=== PATIENT | male | born 1955 | race Two or more races ===

== ENCOUNTER 2017-11-13 13:12 | Inpatient (IN) | payer MEDICAID ==
[~2017-11-13] VITALS: Ht 170.2 cm; Wt 96.3 kg
[~2017-11-13 13:12] MED LIST: ASPI81CH43 PO; ATOR20TA PO; CAR3125T PO; ENA2.5T PO; GABA300C10; INSUINJ49; MUPI2OIN10; PRAS10TA6
[2017-11-13] MEDS ORDERED: cloNIDine HCL 0.1 MG TAB PO ONE (13:30)
[2017-11-13 13:55] LABS: Basophils # (auto) 0 uL; Basophils % (auto) 0.5 % (0.0-2.0); Eosinophils # (auto) 0.5 uL; Eosinophils % (auto) 5.4 % (0.0-7.0); Hematocrit 44.3 % (41.0-53.0); Hemoglobin 15.3 g/dL (13.5-17.5); Mean Corpuscular Hemoglobin 31.9 pg (28.0-32.0); Mean Corpuscular Hgb Conc. 34.6 g/dL (32.0-36.0); Mean Corpuscular Volume 92.3 fL (80.0-100.0); Monocytes # (auto) 0.7 uL; Monocytes % (auto) 7.9 % (0.0-12.0); Neutrophils # (auto) 4.8 uL; Neutrophils % (auto) 53.2 % (37.0-80.0); Nucleated Red Blood Cells % 0.2 %; Platelet Count (auto) 268 10^3/uL (140-450); Red Cell Distribution Width 13.4 % (11.8-14.3)
[2017-11-13 14:13] LABS: Albumin 3.6 g/dL (3.4-5.0); BUN/Creatinine Ratio 15.6; Calcium 8.8 mg/dL (8.5-10.1); Potassium 3.8 mmol/L (3.5-5.1)
[2017-11-13 14:21] LABS: Bilirubin, Total 1.2 mg/dL (0.2-1.0); Total Protein 7.2 g/dL (6.4-8.2)
[2017-11-13] MEDS ORDERED: NITROGLYCERIN 0.4 MG SL TAB SL ONE (14:45)
[2017-11-13] MEDS ORDERED: ASPirin 81 mg TAB PO ONE (14:45)
[2017-11-13] MEDS ORDERED: ONDANSETRON HCL 4 MG/2 ML VIAL IV PRN (15:15)
[2017-11-13] MEDS ORDERED: ENALAPRILAT 1.25 MG/ML-1ML VIAL IV PRN (15:15)
[2017-11-13] MEDS ORDERED: MORPHINE SULFATE 8mg/ml INJ SDV IV PRN ×2 (15:15)
[2017-11-13] MEDS ORDERED: ALUM & MAG HYDROX-SIMETH LIQ(MAALOX) 30 ML PO ONE (15:15)
[2017-11-13] MEDS ORDERED: DEXTROSE (50%) 50ML SYRG IV PRN (15:15)
[2017-11-13] MEDS ORDERED: NITROGLYCERIN 0.4 MG SL TAB SL PRN ×2 (15:15)
[2017-11-13] MEDS ORDERED: cloNIDine HCL 0.1 MG TAB PO PRN (15:15)
[2017-11-13] MEDS ORDERED: ACETAMINOPHEN 325 MG TAB PO PRN (15:15)
[2017-11-13] MEDS: DOCUSATE SOD 100 MG CAP PO SCH (15:25)
[2017-11-13] MEDS: ENOXAPARIN SOD 100 MG/1 ML SYRINGE SC SCH (15:44)
[2017-11-13] MEDS: ACCU-CHEK COMFORT CURVE STRIP VI SCH ×2 (17:00→22:00)
[2017-11-13] MEDS: InsuLIN REG 1unit/0.01ml Soln (100units/ml) SC SCH ×2 (17:00→22:00)
[2017-11-13] MEDS: INSULIN 70/30 1unit/0.01ml Susp (100units/ml) SC SCH (18:00)
[2017-11-13 18:20] VITALS: BP 123/81
[2017-11-13] MEDS: ALBUTEROL SULF 2.5 MG/0.5ML(0.5%) NEB SOLN NEB SCH (18:45)
[2017-11-13] MEDS: IPRATROPIUM BROM 0.5 MG/2.5ML INH SOL NEB SCH (18:45)
[2017-11-13] MEDS: BUDESONIDE (INHALATION) 0.5 MG/2 ML NEB NEB SCH (18:45)
[2017-11-13] MEDS: ZOLPIDEM TARTRATE 5 MG TAB PO PRN ×2 (21:50→22:50)
[2017-11-13] MEDS: SODIUM CHLOR 0.9% PF (SALINE LOCK) 10ML VIAL/SYR IV SCH (22:00)
[2017-11-13] MEDS: ATORVASTATIN 20 MG TAB PO SCH (22:00)
[2017-11-13] MEDS: CARVEDILOL 12.5 MG TAB PO SCH (22:00)
[2017-11-13] MEDS: ENALAPRIL MALEATE 2.5 MG TAB PO SCH (22:00)
[2017-11-13] MEDS: GABAPENTIN 300 MG CAP PO SCH (22:00)
[2017-11-14] VITALS (8 sets, daily range): BP systolic 121–171; BP diastolic 68–103
[2017-11-14] MEDS: LORazepam 0.5 MG TAB PO PRN ×3 (01:28→22:26)
[2017-11-14] MEDS: InsuLIN REG 1unit/0.01ml Soln (100units/ml) SC SCH ×3 (05:59→21:49)
[2017-11-14] MEDS: ACCU-CHEK COMFORT CURVE STRIP VI SCH ×4 (06:00→21:45)
[2017-11-14] MEDS: SODIUM CHLOR 0.9% PF (SALINE LOCK) 10ML VIAL/SYR IV SCH ×3 (06:00→21:45)
[2017-11-14] MEDS: ENOXAPARIN SOD 100 MG/1 ML SYRINGE SC SCH (06:11)
[2017-11-14] MEDS: GABAPENTIN 300 MG CAP PO SCH ×3 (06:11→21:43)
[2017-11-14 06:54] LABS: Basophils # (auto) 0.1 uL; Basophils % (auto) 0.7 % (0.0-2.0); Eosinophils # (auto) 0.6 uL; Eosinophils % (auto) 6.3 % (0.0-7.0); Hematocrit 43.4 % (41.0-53.0); Hemoglobin 15.2 g/dL (13.5-17.5); Lymphocytes # (auto) 3.9 uL; Lymphocytes % (auto) 40.3 % (10.0-50.0); Mean Corpuscular Hemoglobin 32.3 pg (28.0-32.0); Mean Corpuscular Volume 92.4 fL (80.0-100.0); Monocytes # (auto) 0.9 uL; Monocytes % (auto) 9.9 % (0.0-12.0); Neutrophils # (auto) 4.1 uL; Neutrophils % (auto) 42.8 % (37.0-80.0); Nucleated Red Blood Cells % 0.1 %; Platelet Count (auto) 271 10^3/uL (140-450); Red Cell Distribution Width 13.4 % (11.8-14.3); White Blood Cell 9.6 10^3/uL (4.4-10.8)
[2017-11-14] MEDS: ALBUTEROL SULF 2.5 MG/0.5ML(0.5%) NEB SOLN NEB SCH ×3 (07:04→18:00)
[2017-11-14] MEDS: BUDESONIDE (INHALATION) 0.5 MG/2 ML NEB NEB SCH ×2 (07:04→22:00)
[2017-11-14] MEDS: IPRATROPIUM BROM 0.5 MG/2.5ML INH SOL NEB SCH ×4 (07:04→18:00)
[2017-11-14 07:07] LABS: Potassium 4.2 mmol/L (3.5-5.1)
[2017-11-14 07:19] LABS: Albumin 3.6 g/dL (3.4-5.0); BUN/Creatinine Ratio 16.3; Magnesium 2.1 mg/dL (1.6-2.6)
[2017-11-14 07:23] LABS: Urine Bacteria NONE SEEN /hpf (None Seen); Urine Blood Negative /uL (Negative); Urine Specific Gravity 1.018 (1.001-1.035); Urine WBC 1 /hpf (0 - 3)
[2017-11-14 07:24] LABS: Bilirubin, Total 1.1 mg/dL (0.2-1.0); Total Protein 6.9 g/dL (6.4-8.2)
[2017-11-14] MEDS: DOCUSATE SOD 100 MG CAP PO SCH (09:44)
[2017-11-14] MEDS: PRASUGREL HCL 10 MG TAB PO SCH (09:44)
[2017-11-14 09:45] LABS: INR 0.96 (0.9-1.15); Prothrombin Time 10.5 sec (9.37-12.3)
[2017-11-14] MEDS: CARVEDILOL 12.5 MG TAB PO SCH ×2 (09:45→21:43)
[2017-11-14] MEDS: LOSARTAN POTASSIUM 50 MG TAB PO SCH (09:46)
[2017-11-14] MEDS: ASPirin-EC 81 mg tab PO SCH (09:46)
[2017-11-14] MEDS: ENALAPRIL MALEATE 2.5 MG TAB PO SCH ×3 (09:48→21:44)
[2017-11-14] MEDS: INSULIN 70/30 1unit/0.01ml Susp (100units/ml) SC SCH ×2 (11:32→18:04)
[2017-11-14] MEDS: ATORVASTATIN 20 MG TAB PO SCH (21:43)
[2017-11-15 05:00] VITALS: BP 149/86
[2017-11-15] MEDS: GABAPENTIN 300 MG CAP PO SCH ×2 (06:00→14:06)
[2017-11-15] MEDS: SODIUM CHLOR 0.9% PF (SALINE LOCK) 10ML VIAL/SYR IV SCH ×2 (06:23→14:05)
[2017-11-15] MEDS: ACCU-CHEK COMFORT CURVE STRIP VI SCH ×2 (06:30→11:40)
[2017-11-15] MEDS: InsuLIN REG 1unit/0.01ml Soln (100units/ml) SC SCH ×2 (06:30→11:40)
[2017-11-15 06:57] LABS: Basophils # (auto) 0.1 uL; Basophils % (auto) 0.6 % (0.0-2.0); Eosinophils # (auto) 0.6 uL; Eosinophils % (auto) 6.7 % (0.0-7.0); Hematocrit 43.2 % (41.0-53.0); Hemoglobin 15.1 g/dL (13.5-17.5); Lymphocytes # (auto) 3.6 uL; Lymphocytes % (auto) 37.8 % (10.0-50.0); Mean Corpuscular Hemoglobin 32.7 pg (28.0-32.0); Mean Corpuscular Volume 93.4 fL (80.0-100.0); Monocytes # (auto) 0.9 uL; Monocytes % (auto) 9.4 % (0.0-12.0); Neutrophils # (auto) 4.3 uL; Neutrophils % (auto) 45.5 % (37.0-80.0); Nucleated Red Blood Cells % 0.1 %; Platelet Count (auto) 245 10^3/uL (140-450); Red Blood Cells 4.62 10^6/uL (4.5-5.90); Red Cell Distribution Width 13.4 % (11.8-14.3); White Blood Cell 9.5 10^3/uL (4.4-10.8)
[2017-11-15 07:04] LABS: Albumin 3.6 g/dL (3.4-5.0); BUN/Creatinine Ratio 15.7; Bilirubin, Total 1.2 mg/dL (0.2-1.0); Calcium 8.8 mg/dL (8.5-10.1); Potassium 3.9 mmol/L (3.5-5.1)
[2017-11-15] MEDS ORDERED: IODIXANOL 320MG/ML 100ML BTL IV ONE (07:12)
[2017-11-15] MEDS ORDERED: LIDOCAINE HCL 2 %PF INJ 10ML AMP IJ ONE (07:12)
[2017-11-15] MEDS: ALBUTEROL SULF 2.5 MG/0.5ML(0.5%) NEB SOLN NEB SCH ×3 (07:33→12:32)
[2017-11-15] MEDS: IPRATROPIUM BROM 0.5 MG/2.5ML INH SOL NEB SCH ×3 (07:33→12:31)
[2017-11-15] MEDS: INSULIN 70/30 1unit/0.01ml Susp (100units/ml) SC SCH (07:35)
[2017-11-15] MEDS ORDERED: ANGIOMAX 250 MG VIAL IV ONE (07:44)
[2017-11-15] MEDS ORDERED: VERAPAMIL 2.5MG/ML INJ 2ML VIAL IV ONE (07:44)
[2017-11-15] MEDS ORDERED: fentaNYL CITRATE 100 MCG/2 ML VL ONE (07:44)
[2017-11-15] MEDS ORDERED: EPTIFIBATIDE INJ (2MG/ML) 10ML VIAL IV ONE (07:45)
[2017-11-15] MEDS ORDERED: MIDAZOLAM HCL 1MG/1ML-2 ML VIAL ONE (07:45)
[2017-11-15] MEDS ORDERED: SODIUM CHL 0.9% 50 ML ONE ×2 (07:45→08:05)
[2017-11-15] MEDS ORDERED: ADENOSINE 90 MG/30 ML INJ IV ONE (08:04)
[2017-11-15] MEDS: CARVEDILOL 12.5 MG TAB PO SCH (09:25)
[2017-11-15] MEDS: ENALAPRIL MALEATE 2.5 MG TAB PO SCH (11:08)
[2017-11-15] MEDS: LOSARTAN POTASSIUM 50 MG TAB PO SCH (11:09)
[2017-11-15] MEDS: DOCUSATE SOD 100 MG CAP PO SCH (11:09)
[2017-11-15] MEDS: PRASUGREL HCL 10 MG TAB PO SCH (11:27)
[2017-11-15] MEDS: ASPirin-EC 81 mg tab PO SCH (11:27)
[2017-11-15] MEDS: BUDESONIDE (INHALATION) 0.5 MG/2 ML NEB NEB SCH (12:32)
[2017-11-15 13:00] VITALS: BP 144/70
[2017-11-15 14:59] VITALS: BP 145/87
[2017-11-15 16:54] VITALS: BP 147/90
== END 2017-11-15 17:15 | disposition home or self-care (01) | DRG 192 ==
LOC: EDBD 13:12 → ER 13:12 → TELE 13:13 → TELE-EAST 17:41
PROVIDERS: ADMIT Internal Medicine; ATTEND Internal Medicine
PROC: 4A033BC Measurement of Arterial Pressure, Coronary, Percutaneous Approach (ICD-10-PCS; principal; 2017-11-15)
PROC: B2111ZZ Fluoroscopy of Multiple Coronary Arteries using Low Osmolar Contrast (ICD-10-PCS; 2017-11-15)
DX: I13.0 Hypertensive heart and chronic kidney disease with heart failure and stage 1 through stage 4 chronic kidney disease, or unspecified chronic kidney disease (principal); I21.4 Non-ST elevation (NSTEMI) myocardial infarction; E10.21 Type 1 diabetes mellitus with diabetic nephropathy; E10.51 Type 1 diabetes mellitus with diabetic peripheral angiopathy without gangrene; I50.9 Heart failure, unspecified; E10.22 Type 1 diabetes mellitus with diabetic chronic kidney disease; E78.5 Hyperlipidemia, unspecified; I25.110 Atherosclerotic heart disease of native coronary artery with unstable angina pectoris; N18.2 Chronic kidney disease, stage 2 (mild); I67.2 Cerebral atherosclerosis; J44.9 Chronic obstructive pulmonary disease, unspecified; B19.20 Unspecified viral hepatitis C without hepatic coma; I25.2 Old myocardial infarction; Z95.5 Presence of coronary angioplasty implant and graft; Z90.49 Acquired absence of other specified parts of digestive tract; Z88.0 Allergy status to penicillin; Z88.5 Allergy status to narcotic agent; Z79.899 Other long term (current) drug therapy; Z79.4 Long term (current) use of insulin; Z79.82 Long term (current) use of aspirin; Z86.14 Personal history of Methicillin resistant Staphylococcus aureus infection; Z82.49 Family history of ischemic heart disease and other diseases of the circulatory system; Z83.3 Family history of diabetes mellitus
CPT/HCPCS: 36415; 70450; 71046; 80053; 80061; 81001; 82962; 83036; 83735; 83880; 84443; 84484; 85025; 85610; 87081; 93005; 93306; 93458; 94640; 99152; C1887; J0153; J1815; J2250; Q9967